=== PATIENT | female | born 2000 | race Hispanic/Latino ===

== ENCOUNTER 2023-05-12 21:54 | Emergency (ER) | payer OTHER ==
[~2023-05-12] VITALS: Ht 154.9 cm; Wt 94.1 kg
[2023-05-13 02:30] VITALS: BP 110/86; PULSE 80; RESP 16; O2SAT 99
== END 2023-05-13 02:40 | disposition home or self-care (01) ==
LOC: EDH 21:54
DX: O02.1 Missed abortion (principal); Z3A.01 Less than 8 weeks gestation of pregnancy
CPT/HCPCS: 36415; 76817; 81025; 84702